=== PATIENT | female | born 1960 ===

== ENCOUNTER 2022-07-29 09:41 | Observation (INO) ==
[~2022-07-29 09:41] MED LIST: Buffered Lidocaine 1% SYRIN 1 ml INTRADERM ONE; Lactated Ringers 1000 ml BAG 1,000 ML IV SCH; Tranexamic Acid 1,000 MG/10 ML 1,000 MG in NS 0.9% 50 ML 50 ML IV SCH
[2022-07-29] MEDS ORDERED: ceFAZolin 2 GM in NS PREMIX 2 GM/100 ML BAG IVPB ONE (09:57)
[2022-07-29] MEDS ORDERED: Ondansetron 4 mg VIAL 2 MG/ML 2 ml VIAL ONE (10:15)
[2022-07-29] MEDS ORDERED: Propofol 10 MG/ML 20 ML BTL ONE ×4 (10:15→15:24)
[2022-07-29] MEDS ORDERED: Lidocaine 2% PF 5 ML VIAL ONE (10:15)
[2022-07-29] MEDS ORDERED: Bupivacaine 0.5% PF 10 ML SDV VIAL INJ ONE (10:15)
[2022-07-29] MEDS ORDERED: Midazolam 2 mg/2 ml VIAL 1 mg/ml 2 ml VIAL (2 mg) ONE ×3 (10:15→13:51)
[2022-07-29] MEDS ORDERED: fentaNYL 100 mcg/2 ml 50 MCG/ML VIAL ONE (10:15)
[2022-07-29] MEDS ORDERED: Dexamethasone IV 4 MG/ML VIAL 1 ml VIAL ONE (10:15)
[2022-07-29] MEDS ORDERED: HYDROmorphone 1 MG/1 ML SYRINGE IV PRN (10:16)
[2022-07-29] MEDS ORDERED: Naloxone 0.4 mg VIAL 0.4 mg/ml 1 ml VIAL IV PRN (10:16)
[2022-07-29] MEDS ORDERED: ROPIVACAINE 5 MG/ML 30 ML BTL (0.5%) ONE ×2 (11:46→12:55)
[2022-07-29] MEDS ORDERED: Morphine 2 MG/ML SYRINGE IV PRN (13:32)
[2022-07-29] MEDS ORDERED: Magnesium Hydroxide LIQ 30 ML UDC PO PRN (13:32)
[2022-07-29] MEDS ORDERED: Lactulose 30 ml UDC PO PRN (13:32)
[2022-07-29] MEDS ORDERED: Prochlorperazine 5 mg/ml 2 ml VIAL (10 mg) IV PRN (13:41)
[2022-07-29] MEDS ORDERED: Acetaminophen IV 1 GM/100ML 1,000 MG/100 ML BAG IV ONE (13:44)
[2022-07-29] MEDS ORDERED: ceFAZolin 1 GM ADVAN 1 GM in NS 0.9% 50 ML 50 ML IVPB SCH (14:00)
[2022-07-29] MEDS ORDERED: Albuterol HFA INHALER 8 gm MDI INH PRN (16:59)
[2022-07-29] MEDS ORDERED: Dextrose 50% Syringe 50 ml 25 GM/50 ML SYRINGE IV PUSH PRN (17:10)
[2022-07-29] MEDS: Lactated Ringers 1000 ml BAG 1,000 ML IV SCH (18:00)
[2022-07-29] MEDS: Mometasone/Formoter 200/5 MDI INH SCH (21:39)
[2022-07-29] MEDS: ceFAZolin 1 GM ADVAN 1 GM in NS 0.9% 50 ML 50 ML IVPB SCH (21:46)
[2022-07-29] MEDS: Magnesium Hydroxide LIQ 30 ML UDC PO SCH (22:16)
[2022-07-30] MEDS: Lactated Ringers 1000 ml BAG 1,000 ML IV SCH (04:00)
[2022-07-30 05:53] LABS: Hematocrit 38 % (35-47); Hemoglobin 12.5 g/dL (12.0-16.0); Mean Platelet Volume 8.1 fL (7.4-10.4); Platelet Count 186 10^3/uL (150-450)
[2022-07-30] MEDS: ceFAZolin 1 GM ADVAN 1 GM in NS 0.9% 50 ML 50 ML IVPB SCH ×2 (06:00→13:26)
[2022-07-30 06:13] LABS: Creatinine, Serum 0.88 mg/dL (0.51-0.95); Potassium 4.3 mmol/L (3.5-5.0); eGFR CKD-EPI 74.3 (>60)
[2022-07-30] MEDS: Mometasone/Formoter 200/5 MDI INH SCH (07:54)
[2022-07-30] MEDS ORDERED: Vitamin THERAPEUTIC TAB PO SCH (09:00)
[2022-07-30] MEDS: Magnesium Hydroxide LIQ 30 ML UDC PO SCH (09:05)
[2022-07-30 12:09] VITALS: BP 146/76
== END 2022-07-30 14:24 | disposition home or self-care (01) ==
LOC: SSU 09:41 → OR 09:41
PROVIDERS: ADMIT Orthopaedic Surgery Adult Reconstructive Orthopaedic Surgery; ATTEND Orthopaedic Surgery Adult Reconstructive Orthopaedic Surgery